=== PATIENT | male | born 1955 | race Caucasian/White ===

== ENCOUNTER 2017-08-06 09:43 | Day surgery (SDC) | payer OTHER ==
[2017-08-06] MEDS ORDERED: LACTATED RINGERS 1,000 ML IV ONE (10:01)
[2017-08-06] MEDS ORDERED: MIDAZOLAM 2 MG/2 ML VIAL IVP ONE (10:33)
[2017-08-06] MEDS ORDERED: fentaNYL 250 MCG/5 ML VIAL IVP ONE (10:33)
[2017-08-06 11:01] VITALS: BP 110/70
== END 2017-08-06 09:44 | disposition home or self-care (01) ==
LOC: SDS 09:43
PROVIDERS: ATTEND Surgery
PROC: 0DBH8ZX Excision of Cecum, Via Natural or Artificial Opening Endoscopic, Diagnostic (ICD-10-PCS; principal; 2017-08-06 10:45)
DX: Z12.11 Encounter for screening for malignant neoplasm of colon (principal); K57.30 Diverticulosis of large intestine without perforation or abscess without bleeding; D12.0 Benign neoplasm of cecum; K64.8 Other hemorrhoids; K21.9 Gastro-esophageal reflux disease without esophagitis
CPT/HCPCS: 45380; J3010; J7120; 88305